=== PATIENT | female | born 1975 | race Caucasian/White ===

== ENCOUNTER 2017-02-11 23:29 | Emergency (ER) | payer MEDICARE ==
[~2017-02-11] VITALS: Ht 152.4 cm; Wt 92.8 kg
[~2017-02-11 23:29] MED LIST: [UNRECOGNIZED DRUG - REMARK]
[2017-02-12] MEDS ORDERED: DIPHENHYDRAMINE 50 MG/ML, 1ML IVPush ONE
[2017-02-12] MEDS ORDERED: SODIUM CHLORIDE FLUSH 10ML SYR IVF ONE
[2017-02-12] MEDS ORDERED: SODIUM CHLORIDE 0.9% 1,000ML IVBOLUS ONE
[2017-02-12] MEDS ORDERED: METOCLOPRAMIDE 5 MG/ML, 2ML IVPush ONE
[2017-02-12 00:21] LABS: BASOPHILS # (AUTO) 0.21 x10^3/uL (0-0.1); BASOPHILS % (AUTO) 2 % (0-1); EOSINOPHILS # (AUTO) 0.72 x10^3/uL (0-0.4); EOSINOPHILS % (AUTO) 5 % (1-7); LYMPHOCYTES # (AUTO) 1.89 x10^3/uL (1-3.4); LYMPHOCYTES % (AUTO) 14 % (22-44); MD NO; MEAN CORPUSCULAR HEMOGLOBIN 29.1 pg (27.0-34.8); MEAN CORPUSCULAR HGB CONC 33.5 g/dL (32.4-35.8); MEAN CORPUSCULAR VOLUME 86.8 fL (80-100); MEAN PLATELET VOLUME 9.2 fL (7.4-10.4); MONOCYTES % (AUTO) 6 % (2-9); NEUTROPHILS # (AUTO) 9.79 x10^3/uL (1.8-6.8); NEUTROPHILS % (AUTO) 73 % (42-75); PLATELET COUNT 258 x10^3/uL (130-400); RED BLOOD COUNT 5.56 x10^6/uL (3.82-5.3); RED CELL DISTRIBUTION WIDTH 14.1 % (9.6-15.2)
[2017-02-12 00:24] LABS: ALBUMIN 3.6 g/dL (3.4-5.0); ANION GAP 7 mmol/L (5-15); CHLORIDE 107 mmol/L (98-107); CREATININE 0.83 mg/dL (0.55-1.02)
[2017-02-12] MEDS ORDERED: DIPHENHYDRAMINE 50 MG/ML, 1ML ONE (02:20)
[2017-02-12] MEDS ORDERED: METOCLOPRAMIDE 5 MG/ML, 2ML ONE (02:20)
[2017-02-12 03:25] VITALS: BP 132/89
== END 2017-02-12 03:34 | disposition home or self-care (01) ==
LOC: ED 02-12 03:14
DX: G43.009 Migraine without aura, not intractable, without status migrainosus (principal); R42 Dizziness and giddiness; Z90.49 Acquired absence of other specified parts of digestive tract; Z98.51 Tubal ligation status
CPT/HCPCS: 36415; 70450; 80048; 82040; 84703; 85025; 93005; 96361; 96374; 96375; 99285; J1200; J2765; J7030

== ENCOUNTER 2017-08-10 19:50 | Emergency (ER) | payer MEDICARE, OTHER ==
[~2017-08-10] VITALS: Ht 152.4 cm; Wt 97.6 kg
[2017-08-10 19:54] VITALS: BP 129/83
== END 2017-08-10 22:13 | disposition home or self-care (01) ==
LOC: ED 21:11
DX: S33.5XXA Sprain of ligaments of lumbar spine, initial encounter (principal); S40.011A Contusion of right shoulder, initial encounter; S80.01XA Contusion of right knee, initial encounter; G43.909 Migraine, unspecified, not intractable, without status migrainosus; Z88.5 Allergy status to narcotic agent; W01.0XXA Fall on same level from slipping, tripping and stumbling without subsequent striking against object, initial encounter; Y93.89 Activity, other specified; Y99.8 Other external cause status; Y92.89 Other specified places as the place of occurrence of the external cause
CPT/HCPCS: 72110; 99284

== ENCOUNTER 2019-09-04 02:53 | Emergency (ER) | payer OTHER ==
[~2019-09-04] VITALS: Ht 152.4 cm; Wt 88.5 kg
--- NOTE | 2019-09-04 03:06 | NUR ---
FIRST PT CONTACT: PT SITTING UP ON EDGE OF THE GURNEY. STATES SHE CAME IN TONIGHT BECAUSE SHE "SMASHED HER HAND ON SOME MILK CRATES WHILE AT WORK [employer]." PT RIGHT HAND IS SLIGHTLY SWOLLEN WITH BEGINNINGS OF ECCHYMOSIS NOTED. PT STATES WHEN SHE MOVES HAND SHE HAS SHOOTING PAIN TO FINGER TIPS. PAIN 6-7/10. PT CMS INTACT, GROSS NEURO INTACT AND SENSATION INTACT. PT PLACED ON BP AND SPO2 MONITOR. WCTM. ERP AT BS FOR POC AND EVAL.
[2019-09-04] MEDS ORDERED: KETOROLAC 30 MG/1 ML IM ONE (03:30)
[2019-09-04] MEDS ORDERED: KETOROLAC 30 MG/1 ML ONE (03:40)
--- NOTE | 2019-09-04 03:44 | NUR ---
PT MEDICATED PER MAR, NO CHANGE IN CONDITION. FAMILY AT BS. WAITING FOR RAD RESULTS. WCTM.
[2019-09-04 04:25] VITALS: BP 131/74
--- NOTE | 2019-09-04 04:25 | NUR ---
PT RESTING IN [facility], CONDITION UNCHANGED, WCTM. WAITING FOR RAD RESULTS.
--- NOTE | 2019-09-04 05:16 | NUR ---
Patient given discharge instructions and they have confirmed that they understand the instructions. Patient ambulatory with steady gait. DENIES ADDITIONAL NEEDS OR QUESTIONS AT THIS TIME, NAD, P/W/D, VSS, NO BELONGINGS LEFT IN ROOM AT TIME OF DC.
== END 2019-09-04 05:19 | disposition home or self-care (01) ==
LOC: ED 03:23
DX: S67.21XA Crushing injury of right hand, initial encounter (principal); G89.11 Acute pain due to trauma; K21.9 Gastro-esophageal reflux disease without esophagitis; G43.909 Migraine, unspecified, not intractable, without status migrainosus; F17.210 Nicotine dependence, cigarettes, uncomplicated; W23.0XXA Caught, crushed, jammed, or pinched between moving objects, initial encounter; Y93.89 Activity, other specified; Y92.488 Other paved roadways as the place of occurrence of the external cause; Y99.0 Civilian activity done for income or pay
CPT/HCPCS: 73130; 96372; 99283; 99406; J1885

== ENCOUNTER 2020-10-04 17:13 | Emergency (ER) | payer MEDICAID, OTHER ==
[~2020-10-04] VITALS: Ht 152.4 cm; Wt 95.8 kg
--- NOTE | 2020-10-04 18:20 | NUR ---
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
[2020-10-04 18:41] VITALS: BP 143/70
[2020-10-04 18:48] LABS: ALBUMIN 3.2 g/dL (3.4-5.0); ANION GAP 4 mmol/L (5-15); CALCIUM 9.1 mg/dL (8.5-10.1); CHLORIDE 105 mmol/L (98-107)
[2020-10-04 18:50] LABS: CREATININE 0.81 mg/dL (0.55-1.02)
[2020-10-04 18:52] LABS: BASOPHILS % (AUTO) 1 % (0-1); EOSINOPHILS % (AUTO) 7 % (1-7); LYMPHOCYTES % (AUTO) 16 % (22-44); MEAN CORPUSCULAR HEMOGLOBIN 29.1 pg (27.0-34.8); MEAN CORPUSCULAR HGB CONC 33.5 g/dL (32.4-35.8); MEAN PLATELET VOLUME 9.1 fL (7.4-10.4); MONOCYTES % (AUTO) 10 % (2-9); NEUTROPHILS % (AUTO) 67 % (42-75); PLATELET COUNT 279 x10^3/uL (130-400)
== END 2020-10-04 19:07 | disposition home or self-care (01) ==
LOC: ED 17:43
DX: L20.84 Intrinsic (allergic) eczema (principal); K21.9 Gastro-esophageal reflux disease without esophagitis; F17.210 Nicotine dependence, cigarettes, uncomplicated; Z90.49 Acquired absence of other specified parts of digestive tract
CPT/HCPCS: 36415; 80048; 82040; 85025; 99283